=== PATIENT | male | born 1985 | race Caucasian/White ===

== ENCOUNTER 2022-02-03 05:37 | Emergency (ER) | payer BC, SELFPAY ==
[2022-02-03 05:40] VITALS: BP 134/93; PULSE 90; RESP 17; TEMP 36.2; O2SAT 98
--- NOTE | 2022-02-03 06:00 | ED.GENADULT ---
HPI - General Adult General Chief complaint: Back Pain/Injury Stated complaint: Right lower back pain radiates to legs Time Seen by Provider: 02/03/22 05:41 History of Present Illness HPI narrative: 36-year-old male presenting to the emergency department for evaluation of lower back pain. Patient states that he injured his back on Friday when he was twisting to get something. Patient states he then reinjured his back on Friday when he was twisting and he sneezed. Patient was taking ibuprofen for pain control but states after he went out with his friends earlier today that his pain was worsened. Patient states when he woke up this morning he was having back spasms. States that the pain does radiate into his legs but denies any associated numbness or weakness. Patient denies any numbness when wiping and denies any loss of bowel or bladder control. Patient denies any prior history of back surgery. Related Data Allergies Allergy/AdvReac Type Severity Reaction Status Date / Time No Known Allergies Allergy Verified 02/03/22 05:55 Review of Systems Review of Systems: CONSTITUTIONAL: Denies fever, chills, or sweats. EYES: Denies visual changes, redness, or discharge. ENT: Denies rhinorrhea, congestion, sore throat, or otalgia. CARDIOVASCULAR: Denies chest pain, palpitations, or edema. RESPIRATORY: Denies cough or dyspnea. GASTROINTESTINAL: Denies abdominal pain, nausea, vomiting, or diarrhea. GENITOURINARY: Denies dysuria or hematuria. SKIN: Denies rash or itching. MUSCULOSKELETAL: Back pain see HPI NEUROLOGIC: Denies headache, numbness, or weakness. [facility] Surgical History Surgical History (Updated 04/01/19 @ 15:56 by Natali Garcia, ASSEMBLY MACHINE OPERATOR) Hx of tonsillectomy Social History Social History (Updated 04/01/19 @ 15:56 by Natali Garcia, ASSEMBLY MACHINE OPERATOR) Smoking status: Never smoker Alcohol intake: current Alcohol use details: social Substance use: never Gender identity (if verbalized by the patient): Male Exam Narrative: APPEARANCE: Well appearing, no pain, no distress, well-nourished. HEAD: normocephalic, atraumatic. EYES: PERRLA/EOMI, conjunctivae clear. NOSE: Normal no drainage RESPIRATORY: Airway patent, respirations nonlabored. Clear to auscultation bilaterally, no rales, rhonchi, wheezing. CARDIOVASCULAR: Regular rate and rhythm without murmurs rubs or gallops. ABDOMINAL: Soft, nontender, nondistended, normal bowel sounds MUSCULOSKELETAL: Moves all extremities. Reproducible paraspinal lower back pain with palpation. No midline tenderness to palpation. No deformity or step-offs NEURO: Alert. Cranial nerves II through XII intact. Grossly intact SKIN: Warm, dry. Normal Color Course Vital Signs Vital signs: Vital Signs Temperature 97.1 F L 02/03/22 05:40 Pulse Rate 90 02/03/22 05:40 Respiratory Rate 17 02/03/22 05:40 Blood Pressure 134/93 H 02/03/22 05:40 Pulse Oximetry 98 02/03/22 05:40 Oxygen Delivery Room Air 02/03/22 05:40 Temperature 97.1 F L 02/03/22 05:40 Pulse Rate 90 02/03/22 05:40 Respiratory Rate 17 02/03/22 05:40 Blood Pressure 134/93 H 02/03/22 05:40 Pulse Oximetry 98 02/03/22 05:40 Oxygen Delivery Room Air 02/03/22 05:40 Medical Decision Making Vital Signs Vital Signs: Vital Signs Temperature 97.1 F L 02/03/22 05:40 Pulse Rate 90 02/03/22 05:40 Respiratory Rate 17 02/03/22 05:40 Blood Pressure 134/93 H 02/03/22 05:40 Pulse Oximetry 98 02/03/22 05:40 Oxygen Delivery Room Air 02/03/22 05:40 Temperature 97.1 F L 02/03/22 05:40 Pulse Rate 90 02/03/22 05:40 Respiratory Rate 17 02/03/22 05:40 Blood Pressure 134/93 H 02/03/22 05:40 Pulse Oximetry 98 02/03/22 05:40 Oxygen Delivery Room Air 02/03/22 05:40 Discharge Plan Discharge Clinical Impression: Strain of lumbar region Patient Disposition: Home, Self-Care Condition: Stable Instructions: Antibiotic Form, Acute Low Back Pain (ED) Ad
[2022-02-03] MEDS: KETOROLAC (*BKC) 60 MG/2 ML VIAL IM (06:03)
[2022-02-03] MEDS: CYCLOBENZAPRINE HCL 10 MG TABLET PO (06:03)
== END 2022-02-03 06:24 | disposition home or self-care (01) ==
LOC: ANHED 06:00
PROVIDERS: Emergency Provider Emergency Medicine; PCP Family Medicine
DX: S39.012A Strain of muscle, fascia and tendon of lower back, initial encounter (principal); X50.0XXA Overexertion from strenuous movement or load, initial encounter
CPT/HCPCS: 96372; 99283; A9270; J1885

== ENCOUNTER 2023-09-11 12:00 | Emergency (ER) | payer OTHER, SELFPAY ==
--- NOTE | ~2023-09-11 | XR_ITS ---
XR foot RT min 3V 09/11/2023 12:29 INDICATION: Right foot PROCEDURE: 4 views right foot COMPARISON: No prior studies for comparison. FINDINGS: Fracture, dislocation or subluxation is not identified. Lisfranc joint intact. The soft tis sues appear within normal limits. No foreign bodies are identified. IMPRESSION: 1: NO ACUTE BONE OR JOINT ABNORMALITY IDENTIFIED. Reviewed, dictated and finalized at location B.
[2023-09-11 12:03] VITALS: BP 143/83; PULSE 73; RESP 18; TEMP 37.2; O2SAT 100
--- NOTE | 2023-09-11 12:10 | ED.LOWEXIN ---
HPI - Extremity Injury (Lower) General Chief Complaint: Extremity Injury, Lower <Renaldo Garcia APRN - Last Filed: 09/11/23 12:22> Stated Complaint: RIGHT FOOT/KNEE PAIN <Renaldo Garcia APRN - Last Filed: 09/11/23 12:22> Time Seen by Provider: 09/11/23 12:25 <Renaldo Garcia APRN - Last Filed: 09/11/23 12:22> 37-year-old male presents to the emergency room for evaluation of right foot pain. States he has been experiencing right foot pain for several weeks, believed it was due to walking on concrete while at work. Patient denies any injury or trauma. Patient states that he purchased insoles for his shoes, which have not provided him any relief. States he has taken ibuprofen Tylenol with no improvement of the symptoms. Patient states that the foot pain it now radiates into his right knee. Pain is aggravated with movement and alleviated with rest. No known injuries of his right foot. Focused HPI: GENERAL: Well-appearing, well-nourished, and in no acute distress. HEAD: Normocephalic, atraumatic. CHEST: Clear to auscultation. No respiratory distress. HEART: Regular rate and rhythm. NEURO: Alert and oriented x3. Patient screened in triage and initial orders placed. Additional care and disposition to be based upon diagnostic testing and treatment. <Renaldo Garcia APRN - Last Filed: 09/11/23 12:22> History of Present Illness HPI Narrative: 37-year-old male presenting to the emergency department for evaluation of right foot pain. <Rohit Andrade MD - Last Filed: 09/11/23 19:00> Related Data Allergies/Adverse Reactions: Allergies Allergy/AdvReac Type Severity Reaction Status Date / Time No Known Allergies Allergy Verified 02/03/22 05:55 <Renaldo Garcia APRN - Last Filed: 09/11/23 12:22> Review of Systems Review of Systems: All systems reviewed & are unremarkable except as noted in HPI and below <Rohit Andrade MD - Last Filed: 09/11/23 19:00> PM[facility] Surgical History Surgical History: Surgical History (Updated 04/01/19 @ 15:56 by Natali Garcia, SUPERVISOR [employer]T [employer] LINK ASSEMBLY) Hx of tonsillectomy <Renaldo Garcia APRN - Last Filed: 09/11/23 12:22> Social History Social History: Social History (Updated 04/01/19 @ 15:56 by Natali Garcia, SUPERVISOR [employer]T AND LINK ASSEMBLY) Smoking status: Never smoker Alcohol intake: current Alcohol use details: social Substance use: never Gender identity (if verbalized by the patient): Male <Renaldo Garcia, CARDIOPULMONARY TECHNICIAN AND EEG TECH - Last Filed: 09/11/23 12:22> Exam Narrative: APPEARANCE: Well appearing, no pain, no distress, well-nourished. HEAD: normocephalic, atraumatic. EYES: PERRLA/EOMI, conjunctivae clear. NOSE: Normal no drainage RESPIRATORY: Airway patent, respirations nonlabored. Clear to auscultation bilaterally, no rales, rhonchi, wheezing. CARDIOVASCULAR: Regular rate and rhythm without murmurs rubs or gallops. ABDOMINAL: Soft, nontender, nondistended, normal bowel sounds MUSCULOSKELETAL: No tenderness to dorsum right foot, no deformity, no ecchymosis, no edema, no posterior calf tenderness no leg erythema or edema NEURO: Alert. Cranial nerves II through XII intact. Grossly intact <Rohit Andrade MD - Last Filed: 09/11/23 19:00> Course Vital Signs Vital signs: Vital Signs Temperature 98.9 F 09/11/23 12:03 Pulse Rate 73 09/11/23 12:03 Respiratory Rate 18 09/11/23 12:03 Blood Pressure 143/83 H 09/11/23 12:03 Pulse Oximetry 100 09/11/23 12:03 Oxygen Delivery Room Air 09/11/23 12:03 Temperature 98.9 F 09/11/23 12:03 Pulse Rate 73 09/11/23 12:03 Respiratory Rate 18 09/11/23 12:03 Blood Pressure 143/83 H 09/11/23 12:03 Pulse Oximetry 100 09/11/23 12:03 Oxygen Delivery Room Air 09/11/23 12:03 <Renaldo Garcia APRN - Last Filed: 09/11/23 12:22> Vital Signs Temperature 98.9 F 09/11/23 12:03 Pulse Rate 73 09/11/23 12:03 Respiratory Rate 18 09/11/23 12:03 Blood Pressure 143/83
== END 2023-09-11 14:06 | disposition home or self-care (01) ==
PROVIDERS: Emergency Provider Emergency Medicine; PCP Family Medicine
DX: M79.671 Pain in right foot (principal); M79.661 Pain in right lower leg
CPT/HCPCS: 73630; 99283